=== PATIENT | male | born 1950 | race Caucasian/White ===

== ENCOUNTER 2018-05-23 05:48 | Outpatient (CLI) | payer BC ==
[~2018-05-23] VITALS: Ht 177.8 cm; Wt 90.7 kg
[~2018-05-23 05:48] MED LIST: ASPI-983 PO; ATOR40TA70 PO; CHOL10007 PO; SIMV20TA3 PO; VALS1TAB74 PO
[2018-05-23] MEDS ORDERED: ATOR40TA70 PO (13:57)
== END 2018-05-23 14:01 ==
LOC: PREOP 05:48
PROVIDERS: ATTEND Surgery
DX: Z01.818 Encounter for other preprocedural examination (principal); Z12.11 Encounter for screening for malignant neoplasm of colon

== ENCOUNTER 2018-05-29 08:56 | Day surgery (SDC) | payer MEDICARE, OTHER ==
[~2018-05-29] VITALS: Ht 177.8 cm; Wt 90.7 kg
--- OUTSIDE RECORDS SUMMARY | 2018-05-29 09:01 | XMS REPORT | Continuity of Care Document ---
Author Author [facility] Organization [facility] Address Unknown Phone Unavailable Allergies Active Description Code Type Severity Reaction Onset Reported/Identified Relationship to Patient Clinical Status Yes No Known Drug Allergies [id number] Drug Allergy Unknown N/A 10/21/2015 Medications There is no data. Problems Date Dx Coded Attending Type Code Diagnosis Diagnosed By 10/21/2015 KATIE URRUTIA MD V Ot E78.0 PURE HYPERCHOLESTEROLEMIA 10/21/2015 JAX URRUTIA MDINIC V Ot I10 ESSENTIAL (PRIMARY) HYPERTENSION 10/21/2015 KATIE URRUTIA MD V Ot I47.2 VENTRICULAR TACHYCARDIA 10/21/2015 KATIE URRUTIA MD V Ot R94.39 ABNORMAL RESULT OF OTHER CARDIOVASCULAR 10/21/2015 KATIE URRUTIA MD V Ot Z79.899 OTHER SHELTER (CURRENT) DRUG THERAPY 10/21/2015 KATIE URRUTIA MD V Ot Z82.49 FAMILY HX OF ISCHEM HEART DIS AND OTH DI 11/05/2015 TEQUILA NOONAN MD R Ot G47.33 OBSTRUCTIVE SLEEP APNEA (ADULT) (PEDIATR 11/05/2015 TEQUILA NOONAN MD R Ot I10 ESSENTIAL (PRIMARY) HYPERTENSION 11/11/2015 TEQUILA NOONAN MD R Ot R07.89 02/01/2018 TEQUILA NOONAN MD R Ot R07.89 OTHER CHEST PAIN 05/23/2018 ARABELLA JUAREZ MD Ot Z01.818 ENCOUNTER FOR OTHER PREPROCEDURAL EXAMIN 05/23/2018 ARABELLA JUAREZ MD Ot Z12.11 ENCOUNTER FOR SCREENING FOR MALIGNANT NE 05/23/2018 ARABELLA JUAREZ MD Ot Z01.818 ENCOUNTER FOR OTHER PREPROCEDURAL EXAMIN 05/23/2018 ARABELLA JUAREZ MD Ot Z12.11 ENCOUNTER FOR SCREENING FOR MALIGNANT NE Procedures There is no data. Results There is no data. Encounters ACCT No. Visit Date/Time Discharge Status Pt. Type Provider Facility Loc./Unit Complaint [id number] 05/23/2018 05:48:00 05/23/2018 14:01:00 DIS Outpatient LARRY VILLA, ARABELLA Akins [facility] PREOP COLONOSCOPY [id number] 11/04/2015 20:53:00 11/05/2015 06:50:00 DIS Outpatient TEQUILA NOONAN MD [facility] SLEEP SNORING,HTN [id number] 10/21/2015 07:24:00 10/21/2015 23:59:59 CLS Outpatient TEQUILA NOONAN MD [facility] CARD CHEST DISCOMFORT AND PAIN [id number] 10/21/2015 09:29:00 10/21/2015 14:59:00 DIS Outpatient RENAN VILLA, KATIE V [facility] CATH ABNORMAL STRESS TEST , [place] [id number] 05/29/2018 11:00:00 PEN Preadmit LARRY VILLA, ARABELLA Akins [facility] ENDO SCREENING
--- OUTSIDE RECORDS SUMMARY | 2018-05-29 09:01 | XMS REPORT ---
Author Author ROMMEL HELTON Organization [facility] Address [address] [place] [address] Care Team Providers Care Field Investigator Name Role Phone ROMMEL HELTON Unavailable PROBLEMS Unknown Problems ALLERGIES No Information ENCOUNTERS Encounter Location Date Diagnosis [facility] [address] [facility] [id number] [place] [address] Apr, Encounter for immunization Z23 IMMUNIZATIONS Vaccine Route Administration Date Status TDAP (BOOSTRIX) IM Intramuscular April 19, 2017 Administered SOCIAL HISTORY Never Assessed REASON FOR VISIT Immunization(s)--DBennettRN PLAN OF CARE VITAL SIGNS MEDICATIONS Unknown Medications RESULTS No Results PROCEDURES Procedure Date Ordered Result Body Site TDAP (BOOSTRIX) April 19, 2017 SINGLE IMMUNIZATION ADMIN April 19, 2017 INSTRUCTIONS MEDICATIONS ADMINISTERED No Known Medications
[2018-05-29] MEDS ORDERED: NS IV 500 ML 500 ML ONE ×2 (09:03→10:25)
[2018-05-29 09:22] VITALS: BP 164/76
[2018-05-29] MEDS: NS IV 500 ML 500 ML IV PRN ×2 (09:31→10:22)
[2018-05-29] MEDS ORDERED: MIDAZOLAM 2 MG/2 ML (VERSED) VIAL ONE ×3 (10:05)
[2018-05-29] MEDS ORDERED: fentaNYL INJECTION 100 MCG/2 ML AMP ONE ×2 (10:05)
--- NOTE | 2018-05-29 10:11 | History & Physicial ---
History of Present Illness History of Present Illness Reason for visit/HPI To undergo screening colonoscopy. No family history of colon cancer Date of Admission 05/29/18 Date Seen by Provider: May 29, 2018 Time Seen by Provider: 10:09 I consulted on this patient on 05/29/18 09:58 Attending Physician Arabella Juarez MD Admitting Physician Mj Treviño MD Consult Allergies and Home Medications Allergies Coded Allergies: No Known Drug Allergies (Unverified , 10/21/15) Home Medications Aspirin 81 Mg Tablet.dr, 81 MG PO DAILY, (Reported) Atorvastatin Calcium 40 Mg Tablet, 40 MG PO DAILY, (Reported) Cholecalciferol (Vitamin D3) 1,000 Unit Capsule, 1,000 UNIT PO DAILY, (Reported) Valsartan/Hydrochlorothiazide 1 Each Tablet, 1 TAB PO DAILY, (Reported) Patient Home Medication List Home Medication List Reviewed: Yes Past Fanrkin-Znegsm-Wndyon Hx Patient Social History Marrital Status: Employed/Student: employed Alcohol Use: Rarely Uses Alcohol Beverage of Choice: Beer, Wine Recreational Drug Use: No Smoking Status: Never a Smoker Type Used: Cigarettes Recent Foreign Travel: No Contact w/other who traveled: No Recent Hopitalizations: No Recent Infectious Disease Expo: No Seasonal Allergies Seasonal Allergies: No Surgeries No Respiratory No Currently Using CPAP: Yes Cardiovascular Yes Hypertension Neurological No Gastrointestinal No Musculoskeletal No HEENT History of HEENT Disorders: No Cancer No Psychosocial History of Psychiatric Problem: No Integumentary History of Skin or Integumenta: No Constitutional: no symptoms reported EENTM: no symptoms reported Respiratory: no symptoms reported Cardiovascular: no symptoms reported Gastrointestinal: no symptoms reported Genitourinary: no symptoms reported Musculoskeletal: no symptoms reported Skin: no symptoms reported Psychiatric/Neurological: No Symptoms Reported Physical Exam Vital Signs Vital Signs - First Documented 05/29/18 09:22 Temp 97.4 Pulse 48 Resp 18 B/P (MAP) 164/76 (105) Pulse Ox 99 O2 Delivery Room Air Capillary Refill : Height, Weight, BMI Height: 5'10.00" Weight: 200lbs. 0.0oz. 90.107987es; 28.7 BMI Method: General Appearance: No Apparent Distress Neck: Normal Inspection Respiratory: Lungs Clear Cardiovascular: Regular Rate, Rhythm Gastrointestinal: Non Tender, Soft Rectal: Deferred Back: Normal Inspection Extremity: Normal Inspection Neurologic/Psychiatric: Alert, Oriented x3 Skin: Warm/Dry Assessment/Plan Assessment and Plan Gentleman here to undergo screening colonoscopy. Discussed in detail. Admission Diagnosis Admission Status: Other (Outpt Proc) ARABELLA JUAREZ MD May 29, 2018 10:11 am
--- NOTE | 2018-05-29 10:12 | Conscious Sedation/ASA ---
Conscious Sedation Pre-Proced Time Reviewed: 10:12 ASA Class: 2 Airway Mallampati Classification: ([place] appropriate class) I. II. III, IV Lungs Heart ASA score ASA 1: a normal healthy patient ASA 2: a patient with a mild systemic disease (mid diabetes, controlled hypertension, obesity ASA 3: a patient with a severe systemic disease that limits activity (angina , COPD, prior Myocardial infarction) ASA 4: a patient with an incapacitating disease that is a constant threat to life (CHF, renal failure) ASA 5: a moribund patient not expected to survive 24 hrs. (ruptured aneurysm) ASA 6: a declared brain patient whose organs are being harvested. For emergent operations, add the letter E after the classification Grade 1 Sedation Plan: Discussed options with patient/fam Note The patient is an appropriate candidate to undergo the planned procedure, sedation, and anesthesia. The patient immediately re-assessed prior to indication. ARABELLA JUAREZ MD May 29, 2018 10:12 am
[2018-05-29] MEDS: fentaNYL INJECTION 100 MCG/2 ML AMP IVP PRN ×2 (10:16→10:19)
[2018-05-29] MEDS: MIDAZOLAM 2 MG/2 ML (VERSED) VIAL IVP PRN ×2 (10:17→10:20)
[2018-05-29] MEDS: ATROPINE INJ 0.4 MG/ML SDV IV PRN ×2 (10:22→10:29)
[2018-05-29] MEDS ORDERED: ATROPINE 0.4 MG/ML 20 ML VIAL ONE ×2 (10:24→10:26)
--- NOTE | 2018-05-29 10:44 | Endo Procedure Record ---
Endo Procedure Report Date of Procedure Last Colonoscopy: Yes (2006 OR 2007, PATIENT UNSURE) May 29, 2018 Surgeon (s) ARABELLA JUAREZ MD Post Procedure/Op Diagnosis Sigmoid diverticulosis Procedure Performed Colonoscopy to cecum Description of Procedure Anesthesia Type: Conscious Sedation Specimen(s) collected/removed None Description of the Procedure Indication for the procedure: This gentleman came in for screening colonoscopy. Informed consent was obtained after reviewing the procedure in detail. Description of the procedure: He was placed in left lateral decubitus position and his vital signs were monitored. Conscious sedation was achieved using Versed and fentanyl. Due to severe bradycardia with a heart rate in the 30s, atropine and had to be administered. He remained hemodynamically stable. Digital rectal examination was unremarkable. The colonoscope was then introduced into the rectum and advanced to the cecum. It was then withdrawn slowly and the mucosa examined in a systematic fashion. Finding: Very few sigmoid diverticulae. He tolerated the procedure well and was taken to the nursing area in a stable condition. Impression: Screening colonoscopy. No polyps. Recommend repeating in 10 years. Copy Copies To 1: TEQUILA NOONAN MD, XAVIER M MD May 29, 2018 10:44 am
--- NOTE | 2018-05-29 10:46 | Discharge Inst-Simple/Standard ---
Discharge Inst-Standard Discharge Medications New, Converted or Re-Newed RX: Other Patient Instructions/Follow Up Plan of Care/Instructions/FU: Repeat colonoscopy in 10 years Activity as Tolerated: Yes Discharge Diet: No Restrictions ARABELLA JUAREZ MD May 29, 2018 10:46 am
[2018-05-29 11:05] VITALS: BP 155/70
[2018-05-29 11:40] VITALS: BP 128/66
[2018-05-29 11:45] VITALS: BP 128/66
[2018-05-29] MEDS ORDERED: ATROPINE 0.4 MG/ML 20 ML VIAL IV PRN (12:30)
== END 2018-05-29 11:45 | disposition home or self-care (01) ==
LOC: ENDO 08:56
PROVIDERS: ATTEND Surgery
DX: Z12.11 Encounter for screening for malignant neoplasm of colon (principal); K57.30 Diverticulosis of large intestine without perforation or abscess without bleeding; I10 Essential (primary) hypertension